=== PATIENT | female | born 1975 | race Caucasian/White ===

== ENCOUNTER 2019-07-01 09:09 | Day surgery (SDC) | payer OTHER, SELFPAY ==
--- NOTE | 2019-06-30 20:06 | PCM.HP.BLA ---
History and Physical Date of Admission: 07/01/19 Lori Stone 1975 ? ? REFERRING PHYSICIAN: ??Hien Sharma (Peter) ? CHIEF COMPLAINT: right breast lesion with abnormal pathology ? HPI: The patient is a 43 year old female?presents with abnormal right breast mammograms and ultrasound. She denies palpable breast masses. Denies nipple discharge. Denies breast pain. Denies previous breast biopsies. Had an episode of?nipple discharge with compression from mammograms - dark brown?fluid noted. Grandmother had breast cancer and also 6 of her sisters No ovarian cancer known in family ? Mammograms 05/07/19 There is 9 mm x 5 mm irregular lesion in the right breast at 8 o'clock middle depth. ?This irregular lesion is of mixed echogenicity. ?This abnormality is increased in size. US 05/07/19 There is 9 mm x 5 mm irregular lesion in the right breast at 8 o'clock middle depth. ?This irregular lesion is of mixed echogenicity. ?This abnormality is increased in size. ? Pathology - needle core breast biopsy 05/15/19 - ? Right breast, ultrasound guided core biopsy - Benign fibrofatty breast tissue with focal pseudoangiomatous stromal hyperplasia (PASH). ? PAST MEDICAL HISTORY ? Irritable bowel syndrome ? ? Migraine, unspecified, with intractable migraine, so stated, without mention of status migrainosus ? PAST SURGICAL HISTORY ? D&C, DIAG AND/OR THERAPEUTIC?? Dilation & curettage ? EGD W/O OR W/BRUSH/WASH ? 12/03/2018 ? EXTRACTION ERUPTED TOOTH/EXR wisdom teeth ? EYE SURGERY HX ? 04/16/2019? Acquired melanosis of Lt eye ? ? Current Outpatient Medications: Drospirenone-Ethinyl Estradiol (OTILIA 28) 3-0.02 mg per tablet Take 1 tablet by mouth once daily. fluocinolone (SYNALAR) 0.025 % ointment Apply 1 application to affected area twice a week. use daily as needed for up to 2 weeks for flares Cholecalciferol, Vitamin D3, (VITAMIN D-3) 2,000 unit tab Take ?by mouth once daily. calcium citrate/vitamin d3(CITRACAL + D 315 MG-200 UNIT TAB) Take two(2) tablets twice daily. omeprazole (PRILOSEC) 20 mg capsule Take 1 capsule by mouth daily before breakfast. 1/2 hr before meal. ? ? ALLERGIES:?Hayfever [Homeopathic Products] ? 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 FAMILY HISTORY ? Coronary Artery Disease Father ?double lung tranplant 2011 ? Cancer Maternal Grandmother ? ? other (pulmonary fibrosis) Maternal Grandfather ? ? Hypertension Paternal Grandmother ? ? Coronary Artery Disease Paternal Grandfather ? ? other (pulmonary fibrosis) Maternal Aunt ? ? Diabetes Maternal Aunt ? ? ? REVIEW OF SYSTEMS: General - denies fevers, denies anorexia, denies weight loss Cardiovascular - denies chest pain, denies history of [place] Pulmonary - denies shortness of breath, denies coughing up blood Gastrointestinal - denies abdominal pain, denies hematemesis,?notes occasional?blood in stools?on toilet paper - from anal fissure Neurological - denies seizures, denies chronic numbness/weakness of extremities,?has migraine headaches Genitourinary - denies burning with urination, denies blood in urine Hematological - denies spontaneous/prolonged bleeding Skin - denies nonhealing skin wounds Musculoskeletal - denies chronic joint/back pain Endocrine - denies diabetes, no thyroid problems Psychological ? denies hallucinations Obstetrical - menarche onset in 6th grade, , first at age 32, denies breast feeding, BCP use initially at age 19 for about 20 years ? ? PHYSICAL EXAMINATION: General: ?The patient is 43 year old female, well nourished, well hydrated in no acute distress. ?The patient is oriented to time, place, and person. VITALS:??Ht: 5'9 ?Wt: 180# Head ? Normocephalic. EOM intact with sclera clear and no icterus noted. Mouth with mucus membranes moist. Neck - supple with no jugular venous distention noted. Trachea is midline. No carotid bruits noted. No thyroid enlargement or thyroid nodules detected. No masses noted. Chest/breast ? no asymmetry of breasts noted, no suspicious skin lesions noted, no nipple discharge and both nipples everted, no breast masses noted Lungs ? clear to auscultation. Normal breath sounds. No rales/rhonchi/wheezing noted. No labored breathing noted, such as retractions. No cough heard. Heart ? normal S1 and S2 auscultated. No rubs/clicks/murmurs noted. Regular rhythm Abdomen ? soft and benign. Normal bowel sounds. No abdominal bruits noted. No distention noted. Extremities ? no calf tenderness noted. No pitting edema noted. Skin ? normal skin integrity. Lymph ? no cervical adenopathy detected, no supraclavicular adenopathy detected, no axillary adenopathy detected Neurological ??gait normal, no focal deficits noted Psych ? calm and appropriate RADIOLOGIC STUDIES: ?As Noted ? ?? IMPRESSION: breast lesion of uncertain behavior - PAS ? PLAN: ??I have discussed the above with the patient and her who is present with her. I have rec'd wide local excision of area - that is, right breast biopsy via wire localization. I have explained procedure to them. I have counseled the patient as to the risks of the procedure, including but not limited to: infection, bleeding, injury to any blood vessels/nerves, scar tissue, wound infections, missing the lesion, complications of anesthesia, etc. ? the patient understands. The patient wishes to proceed. I have answered all questions to the patient?s satisfaction and the patient has no further questions.
--- NOTE | 2019-07-01 09:30 | BI_ITS ---
SURGICAL BREAST SPECIMEN RADIOGRAPH CLINICAL: Document presence of needle localization wire in biopsy specimen. FINDINGS: Specimen shows presence of the needle localization wire. Electronically Signed: Cecil Gold, at 14:42 EDT , Service support , BI/Breast Biopsy Specimen
[2019-07-01 09:41] VITALS: BP 117/67; PULSE 74; RESP 16; TEMP 36.9; O2SAT 100; BMI 24.3
[2019-07-01] MEDS: Lactated Ringers 1,000 ML 75 ML IV (11:32)
--- NOTE | 2019-07-01 12:21 | OP.PCM_ITS ---
Report of Operation Date of Procedure: 07/01/19 Pre-Operative Diagnosis: right breast neoplasm of uncertain behavior Post-Operative Diagnosis: same as above Surgery/Procedure Performed:: right breast biopsy via wire localization Description of Surgical Findings:: right breast tissue manager of business operations: Connie Narayanan Type of Anesthesia:: Local MAC Anesthesiologist: Jason Butler Specimen's removed: right breast tissue Drains: none Estimated Blood Loss (mL): < 5 ml Fluids Replaced: 1100 cc RL Description of Procedure: After informed consent was given, the patient was brought into the Breast Stereotactic Radiology suite. Appropriate time out protocol was followed. She was then placed in the prone position on the [place] stereotactic table. The patient?s right breast was placed in the opening at the head of the table. A cloth printer compression mammogram was then obtained in the lateral view. The marker clip that was previously placed was identified. Stereo pictures of the lesion were then taken for XYZ coordinates. The Kopans needle was then positioned where it would be entering into the patient?s breast. The skin at this site was then cleansed with a surgical skin preparation. The skin and subcutaneous tissues at this site were then infiltrated with 1% xylocaine. The Kopans needle was then positioned into the patient?s breast at the proper coordinates of depth. A cloth printer film was obtained which revealed the wire in proper position. The patient was then placed in the supine position and the wire was taped into place. A unilateral mammogram in the CC and MLO view were then taken for use in the OR. The patient tolerated this portion of the procedure well and was brought to the AC awaiting surgery in the OR. The patient was then brought to the Operating Room. Appropriate time out protocol was followed. She was then placed on the Operating table in the supine position. A wire had already been placed in the stereotactic biopsy room in the radiology department as described above. The right breast with the wire in placed was then prepped with a sterile surgical skin preparation and sterile surgical drapes were placed. The skin and subcutaneous tissues at the site of the breast lesion was then infiltrated with 1% xylocaine with epinephrine. A transverse skin incision was then made with a 15 blade scalpel in the lower outer quadrant of the right breast. It was carried down through to the subcutaneous tissues. Hemostasis was controlled with electrocautery. The breast tissue surrounding the wire was then carefully palpated out and from the surrounding tissues using electrocautery. The breast tissue, once from the breast, albeit in separate pieces, was then forwarded to the radiology department, where a specimen mammogram revealed that the marker clip was not within the specimen. Therefore additional tissue was noted and obtained, but the marker clip was not identified. A PA radiograph on the Operating Room table was obtained in the OR - no marker clip was identified in the breast wound. The breast tissue was then forwarded to pathology for analysis. The wound cavity was carefully examined. No further suspicious tissue was palpated or visualized. Hemostasis was carefully controlled with electrocautery. The subdermal tissues were then approximated with vicryl suture. The incision was then reapproximated close using running monocryl suture. Cavilon and steristrips were then placed to reinforce the skin closure. A sterile dressing was then applied. The patient was then brought to the Recovery Room in stable condition. - Complications none noted - Admit VTE Documentation VTE Present on Admission: Yes VTE Mechan Device Prophylaxis: SCD's
[2019-07-01] MEDS: Cefazolin 2 GM in 0.9% Normal Saline 100 ML IV (12:25)
--- NOTE | 2019-07-01 12:57 | BRBX_PTH ---
PATIENT: DENNY GO LOC: [facility] [place] U#:[id number] AGE/SX: 43/F ROOM: RE07/01/[address]: Dr. Mikayla Cortez MD : 1975 BED: DIS: 07/01/2019 SPEC #: [id number] RECD: 07/01/19 13:07 STATUS: ARTHUR PURA #: [id number] TOM: 07/01/19 12:[address]: Mikayla Cortez DEPT: SURGICAL PATHOLOGY RECD BY: Sergey Gutierrez ENTERED: 07/01/19 13:41 SP TYPE: BREAST BX OTHR DR: Dr. Thao Mendez MD Tissues: A - Right breast, NOS B - Breast, NOS Procedures: Surgery Specimen Level IV HEADER OPERATION: Breast biopsy via wire localization PRE-OP DIAGNOSIS: Breast lesion of uncertain behavior TISSUE SUBMITTED: A. Right breast mass, B. Additional right breast mass MICROSCOPIC DIAGNOSIS A. Right breast mass, lumpectomy: Intraductal hyperplasia with focal cytologic atypia. Fibrocystic change. Adenosis. Changes of previous biopsy. No evidence of malignancy. B. Additional right breast mass, biopsy: Fibrocystic change. No evidence of malignancy. AM:radha 07/03/19 MICROSCOPIC DESCRIPTION Slides are reviewed. GROSS DESCRIPTION A.Received in fixative is one container labeled with the patient's name and designated right breast mass. The specimen consists of piece of aguilera indurated fibroadipose tissue with needle localization measuring 5.5 x 4.5 x 2 cm. The specimen is not oriented. Sections reveal yellow adipose cut surface and are mixed with dense fibrous areas. No definite mass lesion is identified. The entire specimen is submitted in eleven cassettes from one end to another. B. Received is one container labeled with the patient's name and not further designated. The specimen consists of 3 variable-sized pieces of aguilera indurated tissue measuring in aggregate 3 x 2 x 0.5 cm. All three pieces are bisected. One of the pieces shows a tip of bent wire. The entire specimen is submitted in two cassettes. /MAURA:radha 07/02/19 TC: 5 CPT: 27550 x2
[2019-07-01] MEDS: Bupiv/Epi 0.25% 30 ML Vial (13:15)
--- NOTE | 2019-07-01 13:20 | RAD_ITS ---
STUDY: X-RAY CHEST REASON FOR EXAM: Female, 43 years old. Assessment of the breast clip adjoining breast biopsy. TECHNIQUE: Single AP portable view of the chest. COMPARISON: None. FINDINGS: A limited view of the right lower hemithorax was obtained. No clip is seen within the overlying breast tissue. There is evidence of a 2.5 cm linear metallic density in keeping with the localization needle. RAD/Chest 1 View (Portable) IMPRESSION: No breast clip is seen. Electronically Signed: Cecil Gold, at 13:54 EDT , Service support ,
[2019-07-01 13:48] VITALS: BP 117/67; BP 137/85; PULSE 80; RESP 16; TEMP 36.9; O2SAT 98
[2019-07-01 13:55] VITALS: BP 117/67; BP 156/92; PULSE 83; RESP 18; O2SAT 98
[2019-07-01 14:00] VITALS: BP 117/67; PULSE 62; RESP 16; O2SAT 100
[2019-07-01 14:04] VITALS: BP 117/67; BP 121/88; PULSE 62; RESP 16; TEMP 36.7; O2SAT 100
--- NOTE | 2019-07-01 14:53 | DCINST_ITS ---
Discharge Diet: No Restrictions Discharge Activity: Return to Normal Activity, May not drive while taking narcotic pain medications. Call your doctor if your incision/area has: Continuous Slow Oozing, Foul Smelling Discharge Call your doctor if you observe: Fever of 101 or Higher Additional Dressing/Incision Instructions:: Leave dressings in place. may shower and get wet but do not scrub in area. Wear supportive bra during the day. Do not soak - no tub baths/swimming Additional Instructions: recommended pain medication regimen: take 600 mg ibuprofen then in three hours take 650 mg acetaminophen, then in 3 hours take 600 mg ibuprofen, then in 3 hours take 650 mg acetaminophen, etc. take narcotic medications for breakthrough pain and also at night as needed Allergies/Adverse Reactions: Allergies midazolam [From Versed] Adverse Reaction (Verified 07/01/19 09:39) Vomiting Medications to take at Discharge Calcium Citrate/Vitamin D3 [Citracal + D Maximum Caplet] 1 ea PO DAILY 06/24/19 Cholecalciferol (Vitamin D3) [Vitamin D3] 2,000 unit PO DAILY 06/24/19 Ethinyl Estradiol/Drospirenone [Ludy 28 Tablet] 1 ea PO DAILY 06/24/19 Hydrocodone Bitart/Apap 5-325 [[place] 5MG-325MG] 1 tab PO Q8H PRN PRN 4 Days #10 tab 07/01/19 The following prescriptions were given: Hydrocodone Bitart/Apap 5-325 [[place] 5MG-325MG] 1 tab PO Q8H PRN PRN 4 Days #10 tab PRN Reason: Pain Prescription Printed Primary Care Physician: Thao Mendez MD [Primary Care Provider] -
== END 2019-07-01 15:03 | disposition home or self-care (01) ==
LOC: SDC 09:10 → AC 09:12
PROVIDERS: Family Provider Internal Medicine; PCP Internal Medicine; Referring Provider Surgery; Visit Provider Surgery
PROC: (CPT 19100; principal; 2019-07-01 11:45)
DX: N63.10 Unspecified lump in the right breast, unspecified quadrant (principal); N60.21 Fibroadenosis of right breast; N62 Hypertrophy of breast; E11.9 Type 2 diabetes mellitus without complications; I10 Essential (primary) hypertension; K58.9 Irritable bowel syndrome, unspecified; J84.10 Pulmonary fibrosis, unspecified; Z79.899 Other long term (current) drug therapy; Z80.3 Family history of malignant neoplasm of breast; Z87.891 Personal history of nicotine dependence
CPT/HCPCS: 00400; 19100; 19281; 71045; 76098; 88305; J7120; J2405